=== PATIENT | female | born 1980 | race African-American/Black ===

== ENCOUNTER 2022-01-27 18:03 | Emergency (ER) | payer SELFPAY ==
[~2022-01-27] VITALS: Ht 170.2 cm; Wt 109.1 kg
[2022-01-27 18:10] VITALS: BP 125/83
--- NOTE | 2022-01-27 18:48 | PHYS DOC ---
Past Medical History Past Surgical History: Tubal ligation Smoking Status: Current Every Day Smoker Alcohol Use: None General Adult EDM: Chief Complaint: DENTAL PROBLEM HPI: HPI: Patient is a [age]-year-old female presents to the emergency department complaining of left lower rear molar pain for the past 4 days. Patient states she seen a dentist in August 2021 and he had plans to pull this tooth however she was unable to follow-up to complete this process. Patient states she did not have any more pain with this Saturday until 4 days ago. Patient states she is currently in drug rehab at the [facility], has been taken Tylenol and or Motrin intermittently over the past 4 days along with applying Orajel to the painful tooth with minimal relief in pain. Patient reports her last ibuprofen dose was 600 mg at noon, last took Tylenol at 2 PM 650 mg. Patient states she used Orajel just prior to arrival to the emergency department. Patient states she has not been on antibiotics since August 2021 patient denies numbness or tingling to her face or mouth. Denies throat pain or ear pain. Patient denies fever or chills. Patient denies nausea, vomiting, diarrhea constipation or abdominal discomfort. Denies chest pains or chest discomfort. Patient denies homicidal or suicidal ideation. Patient denies other physical complaints or physical concerns Review of Systems: Review of Systems: 14 body systems of review of systems have been reviewed. See HPI for pertinent positives and negative responses, otherwise all other systems are negative, nonpertinent or noncontributory. Constitutional: Negative except as outlined in HPI above. Skin: Negative except as outlined in HPI above. Eyes: Negative except as outlined in HPI above. HENT: Negative except as outlined in HPI above. Respiratory: Negative except as outlined in HPI above. Cardiovascular: Negative except as outlined in HPI above. GI: Negative except as outlined in HPI above. : Negative except as outlined in HPI above. Musculoskeletal: Negative except as outlined in HPI above. Integument: Negative except as outlined in HPI above. Neurologic: Negative except as outlined in HPI above. Endocrine: Negative except as outlined in HPI above. Lymphatic: Negative except as outlined in HPI above. Psychiatric: Negative except as outlined in HPI above. Heart Score: C/O Chest Pain: No Risk Factors: Risk Factors: DM, Current or recent (<one month) smoker, HTN, HLP, family history of CAD, obesity. Risk Scores: Score 0 - 3: 2.5% MACE over next 6 weeks - Discharge Home Score 4 - 6: 20.3% MACE over next 6 weeks - Admit for Clinical Observation Score 7 - 10: 72.7% MACE over next 6 weeks - Early Invasive Strategies Allergies: Allergies: Allergies Coded Allergies Type Severity Reaction Last Updated Verified sulfamethoxazole Allergy Intermediate 01/27/22 Yes sumatriptan Allergy Intermediate 01/27/22 Yes trimethoprim Allergy Intermediate 01/27/22 Yes Physical Exam: PE: Constitutional: Well developed, well nourished, no acute distress, non-toxic appearance. 41-year-old female in no apparent distress. HENT: Normocephalic, atraumatic. Oral mucosa moist, pink, no deep tissue infe ctious process appreciated, there is no uvular edema or deviation, no laryngeal edema. Patient is speaking in normal voice tones, there is no drooling, no trismus. There is no upward displacement or deviation of the tongue present, there is marked dental caries with teeth in different stages of decay, patient's complaint tooth #17 is decayed, center of tooth has purulent drainage, noted gingivitis without specific periapical abscess. Halitosis noted. Eyes: Conjunctiva normal, no discharge. Neck: Normal range of motion, no stridor. No meningismus signs, no nuchal rigidity. Cardiovascular: No cyanosis appreciated, distal cap refill less than 2 seconds. Regular rate and rhythm. Lungs & Thorax: Patient is in no respiratory distress, normal work of breathing, lung sounds clear to auscultation all lung webb Abdomen: Nontender, no abnormalities noted. Skin: Warm, dry, no erythema, no rash. Back: No tenderness, no deformities. Extremities: No tenderness, no cyanosis, no clubbing, ROM intact, no edema. Neurologic: Alert and oriented X 3, normal motor function, normal sensory function, no focal deficits noted. Psychologic: Affect normal, judgement normal, mood normal. Current Patient Data: Vital Signs: Vital Signs Date Time Temp Pulse Resp B/P (MAP) Pulse Ox O2 Delivery O2 Flow Rate FiO2 01/27/22 18:10 97.7 97 18 125/83 (97) 100 Room Air 97.7 EKG: EKG: [] Radiology/Procedures: Radiology/Procedures: [] Course & Med Decision Making: Course & Med Decision Making Pertinent Labs and Imaging studies reviewed. (See chart for details) 41-year-old female, vital signs reviewed, presents emergency department concerning dental pain for the past 4 days. Physical examination reveals noted dental caries, patient's complaint of tooth is decayed with infectious purulence in center of tooth, discussed with patient will start on Augmentin antibiotic therapy, continue to use [id number] Tylenol and or Motrin for ongoing aches and pains, may continue to use Orajel as directed, warm salt water swish a nd spits 2 or more times a day, will prescribe Peridex, 15 mils swish and spit twice daily strict follow-up with dentist this week, call Saturday for the soonest appointment, return to ER precautions and concerns were reviewed, patient gave verbal understanding of and is amenable to ED discharge planning. Dragon Disclaimer: Dragon Disclaimer: This electronic medical record was generated, in whole or in part, using a voice recognition dictation system. Departure Departure Impression: Primary Impression: Dental caries Additional Impression: Dental infection Disposition: 01 HOME / SELF CARE / HOMELESS Condition: GOOD Patient Instructions: Dental Caries Additional Instructions: You were seen today in the emergency department for dental pain. As we discussed I am starting you on an antibiotic, please take as directed till complete. I have also prescribed a antiseptic mouthwash, please swish and spit twice daily as directed for the next 7 days. Please continue to use Tylenol and or Motrin for ongoing dental discomfort. You may also use Orajel as directed. I have attached a list of dental clinics and area of dentist for you to follow- up with, please call Saturday for the soonest appointment. Return to the emergency department for worsening symptoms or other concerns. Thank you for visiting our Emergency Department. It was a pleasure taking care of you today in the emergency department and we appreciate you trusting us with your care. If any additional problems come up don't hesitate to return to visit us. Please follow up with your primary care provider so they can plan additional care if needed and know about the problem that you had. If symptoms worsen come back to the Emergency Department. Any concerning symptoms that start such as chest pain, shortness of air, weakness or numbness on one side of the body, running high fevers or any other concerning symptoms return to the ER. Scripts Amoxicillin/Potassium Clav (AMOX TR-K CLV 875-125 MG TAB) 1 Each Tablet 1 TAB PO BID for dental infection, #20 TAB Prov: ANDERSON WALLACE APRN 01/27/22 Chlorhexidine Gluconate (PERIDEX) 15 Ml Mouthwash 15 ML PO BID for dental infection for 7 Days, #480 ML 0 Refills Prov: ANDERSON WALLACE APRN 01/27/22 ANDERSON WALLACE APRN Jan 27, 2022 18:48
[2022-01-27] MEDS ORDERED: CHLO15MO2 PO (19:09)
[2022-01-27] MEDS ORDERED: AMOX1TAB11 PO (19:09)
[2022-01-27] MEDS ORDERED: AMOXICILLIN/K CLAV 875/125MG TABLET. PO ONE (19:15)
[2022-01-27] MEDS ORDERED: HYDROcodone/APAP 5/325MG 1 TAB TABLET PO ONE (19:15)
== END 2022-01-27 19:26 | disposition home or self-care (01) ==
LOC: ER 18:03
DX: K04.7 Periapical abscess without sinus (principal); K02.9 Dental caries, unspecified; F17.200 Nicotine dependence, unspecified, uncomplicated; Z88.1 Allergy status to other antibiotic agents; Z88.2 Allergy status to sulfonamides
CPT/HCPCS: 99283